=== PATIENT | male | born 1930 | race Native Hawaiian/Other Pacific Islander ===

== ENCOUNTER 2016-12-08 09:39 | Outpatient (CLI) | payer OTHER ==
[~2016-12-08 09:39] MED LIST: ALENDRONATE35 MG PO; ALPR0.2566 PO; APRODINE1 TAB PO; IRON PILL PO; LEVO0.0218 PO; LEVO0.0529 PO; PRAVACHOL20 MG PO; PRED10TA27 PO; TUMS500 MG OR; VITAMIN D1000 UNIT OR
[2016-12-08 09:58] LABS: PLATELET COUNT 182 K/uL (142-355)
[2016-12-08 11:03] LABS: POTASSIUM 4.6 mmol/L (3.6-5.2)
== END 2016-12-08 19:07 | disposition home or self-care (01) ==
LOC: LABW 09:39
PROVIDERS: Internal Medicine Cardiovascular Disease
DX: E78.4 Other hyperlipidemia (principal); Z79.899 Other long term (current) drug therapy; Z51.81 Encounter for therapeutic drug level monitoring
CPT/HCPCS: 80048; 80061; 80076; 85027

== ENCOUNTER 2018-05-14 10:28 | Outpatient (CLI) | payer OTHER ==
[2018-05-14 11:16] LABS: PLATELET COUNT 182 K/uL (142-355)
[2018-05-14 11:28] LABS: POTASSIUM 4.9 mmol/L (3.6-5.2)
== END 2018-05-14 21:13 | disposition home or self-care (01) ==
LOC: LABW 10:28
PROVIDERS: Internal Medicine
DX: E78.5 Hyperlipidemia, unspecified (principal); E03.9 Hypothyroidism, unspecified; E55.9 Vitamin D deficiency, unspecified; Z79.899 Other long term (current) drug therapy
CPT/HCPCS: 36415; 80053; 80061; 82306; 84443; 85027

== ENCOUNTER 2018-05-25 16:53 | Emergency (ER) | payer OTHER ==
[~2018-05-25] VITALS: Ht 182.9 cm; Wt 77.1 kg
[2018-05-25 20:04] VITALS: BP 157/93; TEMP 98.2
== END 2018-05-25 20:05 | disposition home or self-care (01) ==
LOC: ED 16:53
DX: H10.13 Acute atopic conjunctivitis, bilateral (principal); H10.213 Acute toxic conjunctivitis, bilateral
CPT/HCPCS: 99283

== ENCOUNTER 2018-05-31 11:11 | Outpatient (CLI) | payer OTHER | END 2018-05-31 19:18 | disposition home or self-care (01) | LOC: LABW 11:11 | DX: R35.0 Frequency of micturition (principal); R39.11 Hesitancy of micturition; N40.0 Benign prostatic hyperplasia without lower urinary tract symptoms | CPT/HCPCS: 36415; 84153 ==

== ENCOUNTER 2019-06-20 16:32 | Outpatient (CLI) | payer OTHER | END 2019-06-20 19:55 | disposition home or self-care (01) | LOC: LABW 16:32 | DX: N02.9 Recurrent and persistent hematuria with unspecified morphologic changes (principal); R82.998 Other abnormal findings in urine | CPT/HCPCS: 87086; 87088 ==

== ENCOUNTER 2019-07-31 09:36 | Outpatient (CLI) | payer OTHER | END 2019-07-31 19:49 | disposition home or self-care (01) | LOC: RESP 09:36 | DX: R55 Syncope and collapse (principal) | CPT/HCPCS: 93306 ==

== ENCOUNTER 2020-06-25 13:49 | Outpatient (CLI) | payer OTHER | END 2020-06-25 23:43 | disposition home or self-care (01) | LOC: US 13:49 | DX: I70.213 Atherosclerosis of native arteries of extremities with intermittent claudication, bilateral legs (principal) ==

== ENCOUNTER 2020-06-27 07:01 | Emergency (ER) | payer OTHER ==
[~2020-06-27] VITALS: Ht 182.9 cm; Wt 77.1 kg
[2020-06-27 07:10] VITALS: TEMP 99.1
[2020-06-27 08:16] LABS: PLATELET COUNT 194 K/uL (142-355)
[2020-06-27 08:25] LABS: PARTIAL THROMBOPLASTIN TIME 22.7 SECONDS (24.5-33.6)
[2020-06-27 08:40] VITALS: BP 108/68
== END 2020-06-27 08:40 | disposition still patient (30) ==
LOC: ED 07:01
PROVIDERS: Family Medicine
PROC: 2Y41X5Z Packing of Nasal Region using Packing Material (ICD-10-PCS; principal; 2020-06-27)
DX: R04.0 Epistaxis (principal)
CPT/HCPCS: 36415; 80053; 85007; 85027; 85610; 85730; 99283